=== PATIENT | male | born 1965 | race Caucasian/White ===

== ENCOUNTER → 2018-08-05 13:00 | Outpatient (CLI) | payer OTHER, MEDICAID, SELFPAY ==
--- NOTE | 2018-08-05 | OV.WND_ITS ---
Progress Note Details Patient Name: Juancarlos Nicole Patient Number: [id number] PatientPatientDate: 08/05/2018 Clinician: Nieves Guthrie Clinician Cosigner: Yuliana Estrada Physician / Film Loader: Juancarlos Wilcox SUBJECTIVE Chief Complaint This information was obtained from the patient Non-healing wound to Right lower leg Allergies NKDA HPI This information was obtained from the patient 08/05/18. Seen by Dr. Wilcox. The patient's new to our clinic and presents with a chronic, right medial lower leg non-pressure ulcer that he states has been present for many months, is painful, and has been draining. He reports intermittent significant swelling in the leg and has been wearing compression stockings although feel they're not as effective as they used to be. Family History This information was obtained from the patient Diabetes - Sibling, Heart Disease - Father, Lung Disease - Father Social History This information was obtained from the patient Alcohol Use - Occasional, Caffeine Use - 2 cups coffee, Lives in - Private home , Marital Status - Single, Occupation - Job Development Specialist, Tobacco Use (deprecated) - cigarrettes a day Past Medical History This information was obtained from the patient Patient has a medical history of: Anxiety Depression Varicose Veins Hyperlipidemia Surgical History This information was obtained from the patient Patient has a surgical history of: Umbilical hernia repair Complaints and Symptoms This information was obtained from the patient Patient complains of: General Notes: I have reviewed and concur with the Review of Systems and Past Family Social History documents completed by the clinician, I have reviewed and concur with the Wound Assessment document completed by the clinician Integumentary (Hair/Skin/Nails): Hemosiderin Staining, Open Sore Prior Wound History: Drainage, Erythema, Pain Patient denies complaints or symptoms related to: Cardiovascular (Central): Irregular heart beat Constitutional Symptoms (General Health): Chills, Fever Ear/Nose/Mouth/Throat: Hearing Loss / Aid Hematologic/Lymphatic: Bleeding / Clotting Disorders, Bleeding Tendency Neurological: Loss of Protective Sensation Respiratory: Shortness of Breath General Notes: Up to date per patient Medications tumeric oral tablet oral ibuprofen 200 mg tablet oral tablet oral OBJECTIVE Constitutional BP elevated; Afebrile; Alert and in no distress. Well developed. Alert. Clean appearing.. Height/Length: 71 in (180.34 cm), Weight: 149 lbs (67.73 kgs), BMI: 20.8, Temperature: 98.3 ?F (36.83 ?C), Pulse: 69 bpm, Respiratory Rate: 18 breaths/min, Blood Pressure: 134/89 mmHg, Pulse Oximetry: 99 %. Respiratory: No respiratory distress. Even respirations and without use of accessory muscles.. Cardiovascular: Pedal pulses 2+ on affected limb. 1+ right lower extremity edema. Gastrointestinal (GI): Non-obese. Nondistended.. Integumentary (Hair, Skin) Hemosiderin staining noted over right lower leg. Refer to appropriate clinician wound documentation for this visit; right lower leg ulcer extends to subcut with base partially covered with red, friable granulation, remainder fibrin and slough; tender upon debridement. Wound #1 Right, Medial Leg is a chronic Full Thickness Venous Ulcer and has received a status of Not Healed. Initial wound encounter measurements are 0.9cm length x 0.6cm width x 0.2cm depth, with an area of 0.54 sq cm and a volume of 0.108 cubic cm. No tunneling has been noted. No sinus tract has been noted. No undermining has been noted. There is a moderate amount of serosanguineous drainage noted which has no odor. The patient reports a wound pain of level 0/10. The wound margin is attached. Wound bed has No epithelialization, No eschar, Yes slough, Yes bright red, pink, firm granulation. The periwound skin texture is normal. The periwound skin moisture is normal. The periwound skin color is normal. The temperature of the periwound skin is WNL. Periwound skin does not exhibit signs or symptoms of infection. Local Pulse is Palpable. Neurological: Cranial nerves grossly intact with symmetric function normal by informal observation.. ASSESSMENT Active Problems ICD-10 (Encounter Diagnosis) L97.812 - Non-pressure chronic ulcer of other part of right lower leg with fat layer exposed (Encounter Diagnosis) I87.311 - Chronic venous hypertension (idiopathic) with ulcer of right lower extremity (Encounter Diagnosis) L08.9 - Local infection of the skin and subcutaneous tissue, unspecified PROCEDURES Wound #1 Wound #1 (Venous Ulcer) is located on the right, medial leg. A skin/ subcutaneous tissue level surgical debridement with a total area debrided of 0.54 sq cm was performed by Juancarlos Wilcox MD. Subcutaneous was removed along with devitalized tissue: slough. The following instrument(s) were used: curette. Pain control was achieved using 4% Lido. A time out was conducted prior to the start of the procedure. A minimal amount of bleeding was controlled with n/a. The procedure was tolerated well with a pain level of 0 throughout and a pain level of 0 following the procedure. Post Debridement Measurements: 0.9cm length x 0.6cm width x 0.3cm depth; with an area of 0.54 sq cm and a volume of 0.162 cubic cm; Additional Information Muscle fascia or bone removed and sent to pathology?: No PLAN Wound Orders: Wound #1 Right, Medial Leg Anesthetic Topical Xylocaine to wound bed. Cleanser Cleanse Wound: - Normal Saline in Clinic. May use distilled water at home. May Shower. - Please avoid getting tap water in wound or on dressing. Cover while in the shower. May used cast protector purchased from pharmacy. Topical Treatments Antibiotic/Antimicrobial Ointment/Cream. - Triple antibiotic ointment Dressings Primary dressing: - Bordered foam or band aid Change Dressing: - Every other day Additional Orders: Follow-Up Appointments Return Appointment: - - One week Other information: If you develop fever, chills, increased pain, drainage, redness or swelling please call our office. If after hours, respond to the ER. Should you experience any significant changes in your wound(s) or have any questions regarding your home care instructions please contact the wound center @ [phone]. If after hours, contact your primary care physician or go to the hospital emergency room. Scribing Attestation I attest, as the nurse, that I scribed these orders for the physician. Laboratory: Culture Wound General Notes: We will call with any positive wound cultures requiring oral antibiotics. I've reviewed the clinician's documentation and agree with the evaluation and plan as written. In addition, the patient's ulcer demonstrates evidence of non-viable devitalized tissue which will continue to benefit from sharp debridement to help promote granulation and expedite healing. Also, we've provided him with a new compression stocking, will plan on placing a compression wrap possibly next week, and started treating a superficial wound infection with OTC topical antibiotic. Electronic Signature(s) Signed By: Date: Juancarlos Wilcox MD 08/06/2018 09:13:39 Entered By: Juancarlos Wilcox on 08/06/2018 06:54:28
== END ==
PROVIDERS: PCP Family Medicine; Referring Provider Surgery Vascular Surgery; Visit Provider Internal Medicine
DX: I87.311 Chronic venous hypertension (idiopathic) with ulcer of right lower extremity (principal); L97.812 Non-pressure chronic ulcer of other part of right lower leg with fat layer exposed; L08.9 Local infection of the skin and subcutaneous tissue, unspecified
CPT/HCPCS: 11042; 87070; 87077; 87147; 87186; 87205; 99213

== ENCOUNTER → 2018-08-11 14:51 | Outpatient (CLI) | payer OTHER, SELFPAY ==
--- NOTE | 2018-08-11 | OV.WND_ITS ---
Progress Note Details Patient Name: Juancarlos Nicole Patient Number: [id number] PatientPatientDate: 08/11/2018 Clinician: Prerna Vidal Clinician Cosigner: Penelope Saenz Physician / Corner Former: Brenden Juancarlos SUBJECTIVE Chief Complaint This information was obtained from the patient Non-healing wound to Right lower leg. Allergies NKDA HPI This information was obtained from the patient 08/11/18. Seen by Dr. Wilcox. The patient reports improvement in terms of pain and drainage associated with the right medial lower leg venous ulcer since his last visit. His wound culture grew a resistant coag negative Staph species and he's been applying topical mupiricin to the ulcer base. 08/05/18. Seen by Dr. Wilcox. The patient's new to our clinic and presents with a chronic, right medial lower leg non-pressure ulcer that he states has been present for many months, is painful, and has been draining. He reports intermittent significant swelling in the leg and has been wearing compression stockings although feel they're not as effective as they used to be. Past Medical History This information was obtained from the patient Patient has a medical history of: Anxiety Depression Varicose Veins Hyperlipidemia Complaints and Symptoms This information was obtained from the patient Patient complains of: General Notes: I have reviewed and concur with the Review of Systems and Past Family Social History documents completed by the clinician, I have reviewed and concur with the Wound Assessment document completed by the clinician Integumentary (Hair/Skin/Nails): Hemosiderin Staining, Open Sore Prior Wound History: Drainage, Erythema, Pain Patient denies complaints or symptoms related to: Cardiovascular (Central): Irregular heart beat Constitutional Symptoms (General Health): Chills, Fever Ear/Nose/Mouth/Throat: Hearing Loss / Aid Hematologic/Lymphatic: Bleeding / Clotting Disorders, Bleeding Tendency Neurological: Loss of Protective Sensation Respiratory: Shortness of Breath OBJECTIVE Constitutional Vital signs reviewed and noted. Well developed. Alert. Clean appearing.. Height/ Length: 71 in (180.34 cm), Weight: 142.6 lbs (64.82 kgs), BMI: 19.9, Temperature: 98.4 ?F ( 36.89 ?C), Pulse: 84 bpm, Respiratory Rate: 18 breaths/min, Blood Pressure: 121/81 mmHg, Pulse Oximetry: 97 %. Respiratory: No respiratory distress. Even respirations and without use of accessory muscles.. Cardiovascular: Pedal pulses 2+ on affected limb. 1+ right lower extremity edema. Integumentary (Hair, Skin) Mild periwound erythema without warmth. Refer to appropriate clinician wound documentation for this visit; right lower leg ulcer extends to subcut with base partially covered with pink granulation, remainder fibrin and slough. Wound #1 Right, Medial Leg is a chronic Full Thickness Venous Ulcer and has received a status of Not Healed. Subsequent wound encounter measurements are 0.8cm length x 0.6cm width x 0.1cm depth, with an area of 0.48 sq cm and a volume of 0.048 cubic cm. No tunneling has been noted. No sinus tract has been noted. No undermining has been noted. There is a scant amount of serosanguineous drainage noted which has no odor. The patient reports a wound pain of level 0/10. The wound margin is attached. Wound bed has No epithelialization, Yes eschar, Yes slough, No granulation. The periwound skin texture is normal. The periwound skin moisture is normal. The periwound skin color is normal. The temperature of the periwound skin is WNL. Periwound skin does not exhibit signs or symptoms of infection. Local Pulse is Palpable. Neurological: Cranial nerves grossly intact with symmetric function normal by informal observation.. ASSESSMENT Active Problems ICD-10 (Encounter Diagnosis) L97.812 - Non-pressure chronic ulcer of other part of right lower leg with fat layer exposed (Encounter Diagnosis) I87.311 - Chronic venous hypertension (idiopathic) with ulcer of right lower extremity (Encounter Diagnosis) B95.7 - Other staphylococcus as the cause of diseases classified elsewhere PROCEDURES Wound #1 Wound #1 (Venous Ulcer) is located on the right, medial leg. A skin/ subcutaneous tissue level surgical debridement with a total area debrided of 0.48 sq cm was performed by Juancarlos Wilcox MD. Subcutaneous was removed along with devitalized tissue: exudate and slough. The following instrument(s) were used: curette. Pain control was achieved using 4% Lido. A time out was conducted prior to the start of the procedure. A minimal amount of bleeding was controlled with pressure. The procedure was tolerated well with a pain level of 3 throughout and a pain level of 1 following the procedure. Post Debridement Measurements: 0.8cm length x 0.6cm width x 0.2cm depth; with an area of 0.48 sq cm and a volume of 0.096 cubic cm; General Notes: No post photo taken. Additional Information Muscle fascia or bone removed and sent to pathology?: No PLAN Wound Orders: Wound #1 Right, Medial Leg Anesthetic Topical Xylocaine to wound bed. - In clinic only. Cleanser Cleanse Wound: - Normal Saline in Clinic. May use distilled water at home. May Shower. - Please avoid getting tap water in wound or on dressing. Cover while in the shower. May use cast protector purchased from pharmacy. Topical Treatments Antibiotic/Antimicrobial Ointment/Cream. - Gentamicin ointment. Dressings Cover and secure with: - Telfa pad secured with hypafix tape. Change Dressing: - Daily. Additional Orders: Compression/Edema Control Elevation of leg(s) above the level of the heart when sitting. Avoid prolonged standing in one place. Single Layer Compression Hose - Wear your personal compression stockings every day. Follow-Up Appointments Return Appointment: - - One week. Other information: If you develop fever, chills, increased pain, drainage, redness or swelling please call our office. If after hours, respond to the ER. Should you experience any significant changes in your wound(s) or have any questions regarding your home care instructions please contact the wound center @ [phone]. If after hours, contact your primary care physician or go to the hospital emergency room. Scribing Attestation I attest, as the nurse, that I scribed these orders for the physician. I've reviewed the clinician's documentation and agree with the evaluation and plan as written. In addition, the patient's ulcer demonstrates evidence of non-viable devitalized tissue which will continue to benefit from sharp debridement to help promote granulation and expedite healing. Also, the patient will apply topical gentamicin to the ulcer base daily to treat the Staph positive culture. Electronic Signature(s) Signed By: Date: Juancarlos Wilcox MD 08/12/2018 07:59:58 Entered By: Juancarlos Wilcox on 08/12/2018 07:30:34
== END ==
PROVIDERS: PCP Family Medicine; Visit Provider Internal Medicine
DX: I87.311 Chronic venous hypertension (idiopathic) with ulcer of right lower extremity (principal); L97.812 Non-pressure chronic ulcer of other part of right lower leg with fat layer exposed; B95.7 Other staphylococcus as the cause of diseases classified elsewhere
CPT/HCPCS: 11042

== ENCOUNTER → 2018-08-18 14:04 | Outpatient (CLI) | payer OTHER, SELFPAY ==
--- NOTE | 2018-08-18 | OV.WND_ITS ---
Progress Note Details Patient Name: Juancarlos Nicole Patient Number: [id number] PatientPatientDate: 08/18/2018 Clinician: Prerna Vidal Clinician Cosigner: Nieves Guthrie Physician / Biomedical Engineering Professor: Brenden Juancarlos SUBJECTIVE Chief Complaint This information was obtained from the patient Non-healing wound to Right lower leg. Allergies NKDA HPI This information was obtained from the patient 08/18/18. Seen by Dr. Wilcox. The patient does not report pain associated with the right medial lower leg venous ulcer since his last visit and he's applying topical gentamicin to treat the recent coag negative Staph culture taken from the ulcer. 08/11/18. Seen by Dr. Wilcox. The patient reports improvement in terms of pain and drainage associated with the right medial lower leg venous ulcer since his last visit. His wound culture grew a resistant coag negative Staph species and he's been applying topical mupiricin to the ulcer base. 08/05/18. Seen by Dr. Wilcox. The patient's new to our clinic and presents with a chronic, right medial lower leg non-pressure ulcer that he states has been present for many months, is painful, and has been draining. He reports intermittent significant swelling in the leg and has been wearing compression stockings although feel they're not as effective as they used to be. Past Medical History This information was obtained from the patient Patient has a medical history of: Anxiety Depression Varicose Veins Hyperlipidemia Complaints and Symptoms This information was obtained from the patient Patient complains of: General Notes: I have reviewed and concur with the Review of Systems and Past Family Social History documents completed by the clinician, I have reviewed and concur with the Wound Assessment document completed by the clinician Integumentary (Hair/Skin/Nails): Hemosiderin Staining, Open Sore Prior Wound History: Drainage, Erythema, Pain Patient denies complaints or symptoms related to: Cardiovascular (Central): Irregular heart beat Constitutional Symptoms (General Health): Chills, Fever Ear/Nose/Mouth/Throat: Hearing Loss / Aid Hematologic/Lymphatic: Bleeding / Clotting Disorders, Bleeding Tendency Neurological: Loss of Protective Sensation Respiratory: Shortness of Breath OBJECTIVE Constitutional BP normal; Low grade fever; Alert and in no distress. Well developed. Alert. Clean appearing.. Height/Length: 71 in (180.34 cm), Weight: 142.6 lbs (64.82 kgs), BMI: 19.9, Temperature: 99.9 ?F (37.72 ?C), Pulse: 81 bpm, Respiratory Rate: 18 breaths/min, Blood Pressure: 127/81 mmHg, Pulse Oximetry: 96 %. Respiratory: No respiratory distress. Even respirations and without use of accessory muscles.. Cardiovascular: Affected extremity exhibits no peripheral edema or cyanosis, is warm, and is well perfused. Capillary refill is less than 2 seconds. Integumentary (Hair, Skin) No periwound erythema, warmth, or significant drainage. No periwound rashes appreciated or noted otherwise.. Refer to appropriate clinician wound documentation for this visit; right lower leg ulcer extends to subcut with base partially covered with pink granulation, remainder fibrin and slough, minor bleeding from a varicose vein at the base treated with pressure and cauterization. Wound #1 Right, Medial Leg is a chronic Full Thickness Venous Ulcer and has received a status of Not Healed. Subsequent wound encounter measurements are 1cm length x 0.8cm width x 0.1cm depth, with an area of 0.8 sq cm and a volume of 0.08 cubic cm. No tunneling has been noted. No sinus tract has been noted. No undermining has been noted. There is a small amount of serosanguineous drainage noted which has no odor. The patient reports a wound pain of level 0/10. The wound margin is attached. Wound bed has No epithelialization, Yes eschar, Yes slough, No granulation. The periwound skin texture is normal. The periwound skin moisture is normal. The periwound skin color is normal. The temperature of the periwound skin is WNL. Periwound skin does not exhibit signs or symptoms of infection. Local Pulse is Palpable. Neurological: Cranial nerves grossly intact with symmetric function normal by informal observation.. ASSESSMENT Active Problems ICD-10 (Encounter Diagnosis) L97.812 - Non-pressure chronic ulcer of other part of right lower leg with fat layer exposed (Encounter Diagnosis) I87.311 - Chronic venous hypertension (idiopathic) with ulcer of right lower extremity (Encounter Diagnosis) B95.7 - Other staphylococcus as the cause of diseases classified elsewhere PROCEDURES Wound #1 Wound #1 (Venous Ulcer) is located on the right, medial leg. A skin/ subcutaneous tissue level surgical debridement with a total area debrided of 0.8 sq cm was performed by Juancarlos Wilcox MD. Subcutaneous was removed along with devitalized tissue: exudate and slough. The following instrument(s) were used: curette. Pain control was achieved using 4% Lido. A time out was conducted prior to the start of the procedure. A moderate amount of bleeding was controlled with silver nitrate. The procedure was tolerated well with a pain level of 0 throughout and a pain level of 0 following the procedure. Post Debridement Measurements: 1cm length x 0.8cm width x 0.2cm depth; with an area of 0.8 sq cm and a volume of 0.16 cubic cm; Additional Information Muscle fascia or bone removed and sent to pathology?: No PLAN Wound Orders: Wound #1 Right, Medial Leg Anesthetic Topical Xylocaine to wound bed. - In clinic only. Cleanser Cleanse Wound: - Normal Saline in Clinic. May use distilled water at home. May Shower. - Please avoid getting tap water in wound or on dressing. Cover while in the shower. May use cast protector purchased from pharmacy. Topical Treatments Antibiotic/Antimicrobial Ointment/Cream. - Gentamicin ointment. Dressings Cover and secure with: - Bordered foam applied in clinic. Telfa pad secured with hypafix tape. Change Dressing: - Daily. Additional Orders: Compression/Edema Control Elevation of leg(s) above the level of the heart when sitting. Avoid prolonged standing in one place. Single Layer Compression Hose - Wear your personal compression stockings every day. Follow-Up Appointments Return Appointment: - - One week. Other information: If you develop fever, chills, increased pain, drainage, redness or swelling please call our office. If after hours, respond to the ER. Should you experience any significant changes in your wound(s) or have any questions regarding your home care instructions please contact the wound center @ [phone]. If after hours, contact your primary care physician or go to the hospital emergency room. Scribing Attestation I attest, as the nurse, that I scribed these orders for the physician. General Notes: Submitting for MISHA NPWT device to possibly place at next visit. I've reviewed the clinician's documentation and agree with the evaluation and plan as written. In addition, the patient's ulcer demonstrates evidence of non-viable devitalized tissue which will continue to benefit from sharp debridement to help promote granulation and expedite healing. Electronic Signature(s) Signed By: Date: Juancarlos Wilcox MD 08/19/2018 06:59:08 Entered By: Juancarlos Wilcox on 08/19/2018 06:29:57
== END ==
PROVIDERS: PCP Family Medicine; Visit Provider Internal Medicine
DX: I87.2 Venous insufficiency (chronic) (peripheral) (principal); L97.812 Non-pressure chronic ulcer of other part of right lower leg with fat layer exposed; B95.7 Other staphylococcus as the cause of diseases classified elsewhere
CPT/HCPCS: 11042

== ENCOUNTER → 2018-08-25 14:22 | Outpatient (CLI) | payer OTHER, SELFPAY ==
--- NOTE | 2018-08-25 | OV.WND_ITS ---
Progress Note Details Patient Name: Juancarlos Nicole Patient Number: [id number] PatientPatientDate: 08/25/2018 Clinician: Yuliana Estrada Clinician Cosigner: Penelope Saenz Physician / Callisthenics Instructor: Brenden Juancarlos SUBJECTIVE Chief Complaint This information was obtained from the patient Non-healing wound to Right lower leg. Allergies NKDA HPI This information was obtained from the patient 08/25/18. Seen by Dr. Wilcox. The patient does not report pain associated with the right medial lower leg venous ulcer since his last visit and he's applying topical gentamicin to treat the recent coag negative Staph culture taken from the ulcer. 08/18/18. Seen by Dr. Wilcox. The patient does not report pain associated with the right medial lower leg venous ulcer since his last visit and he's applying topical gentamicin to treat the recent coag negative Staph culture taken from the ulcer. 08/11/18. Seen by Dr. Wilcox. The patient reports improvement in terms of pain and drainage associated with the right medial lower leg venous ulcer since his last visit. His wound culture grew a resistant coag negative Staph species and he's been applying topical mupiricin to the ulcer base. 08/05/18. Seen by Dr. Wilcox. The patient's new to our clinic and presents with a chronic, right medial lower leg non-pressure ulcer that he states has been present for many months, is painful, and has been draining. He reports intermittent significant swelling in the leg and has been wearing compression stockings although feel they're not as effective as they used to be. Past Medical History This information was obtained from the patient Patient has a medical history of: Anxiety Depression Varicose Veins Hyperlipidemia Complaints and Symptoms This information was obtained from the patient Patient complains of: General Notes: I have reviewed and concur with the Review of Systems and Past Family Social History documents completed by the clinician, I have reviewed and concur with the Wound Assessment document completed by the clinician Integumentary (Hair/Skin/Nails): Hemosiderin Staining, Open Sore Prior Wound History: Drainage, Erythema, Pain Patient denies complaints or symptoms related to: Cardiovascular (Central): Irregular heart beat Constitutional Symptoms (General Health): Chills, Fever Ear/Nose/Mouth/Throat: Hearing Loss / Aid Hematologic/Lymphatic: Bleeding / Clotting Disorders, Bleeding Tendency Neurological: Loss of Protective Sensation Respiratory: Shortness of Breath OBJECTIVE Constitutional Vital signs reviewed and noted. Well developed. Alert. Clean appearing.. Height/ Length: 71 in (180.34 cm), Weight: 144.7 lbs (65.77 kgs), BMI: 20.2, Temperature: 98.2 ?F ( 36.78 ?C), Pulse: 80 bpm, Respiratory Rate: 18 breaths/min, Blood Pressure: 127/88 mmHg, Pulse Oximetry: 66 %. Ears, Nose, Mouth, and Throat: No clinically significant hearing loss on informal examination. Respiratory: No respiratory distress. Even respirations and without use of accessory muscles.. Cardiovascular: 1+ right lower extremity edema. Integumentary (Hair, Skin) Hemosiderin staining noted over right lower leg. Refer to appropriate clinician wound documentation for this visit; right lower leg ulcer extends to subcut with base partially covered with pink granulation, remainder fibrin and slough. Wound #1 Right, Medial Leg is a chronic Full Thickness Venous Ulcer and has received a status of Not Healed. Subsequent wound encounter measurements are 1.1cm length x 0.5cm width x 0.2cm depth, with an area of 0.55 sq cm and a volume of 0.11 cubic cm. No tunneling has been noted. No sinus tract has been noted. No undermining has been noted. There is a small amount of serosanguineous drainage noted which has no odor. The patient reports a wound pain of level 3/10. The wound margin is attached. Wound bed has No epithelialization, No eschar, Yes slough, No granulation. The periwound skin texture is normal. The periwound skin moisture is normal. The periwound skin color is normal. The temperature of the periwound skin is WNL. Periwound skin does not exhibit signs or symptoms of infection. Local Pulse is Palpable. Neurological: Cranial nerves grossly intact with symmetric function normal by informal observation.. ASSESSMENT Active Problems ICD-10 (Encounter Diagnosis) L97.812 - Non-pressure chronic ulcer of other part of right lower leg with fat layer exposed (Encounter Diagnosis) I87.311 - Chronic venous hypertension (idiopathic) with ulcer of right lower extremity (Encounter Diagnosis) B95.7 - Other staphylococcus as the cause of diseases classified elsewhere PROCEDURES Wound #1 Wound #1 (Venous Ulcer) is located on the right, medial leg. A skin/ subcutaneous tissue level surgical debridement with a total area debrided of 0.55 sq cm was performed by Juancarlos Wilcox MD. Subcutaneous was removed along with devitalized tissue: slough. The following instrument(s) were used: curette. Pain control was achieved using 4% Lido. A time out was conducted prior to the start of the procedure. A minimal amount of bleeding was controlled with n/a. The procedure was tolerated well with a pain level of 0 throughout and a pain level of 0 following the procedure. Post Debridement Measurements: 1.1cm length x 0.5cm width x 0.3cm depth; with an area of 0.55 sq cm and a volume of 0.165 cubic cm; Additional Information Muscle fascia or bone removed and sent to pathology?: No PLAN Wound Orders: Wound #1 Right, Medial Leg Anesthetic Topical Xylocaine to wound bed. - In clinic only. Cleanser Cleanse Wound: - Normal Saline in Clinic. May use distilled water at home. May Shower. - Please avoid getting tap water in wound or on dressing. Cover while in the shower. May use cast protector purchased from pharmacy. Topical Treatments Antibiotic/Antimicrobial Ointment/Cream. - Gentamicin ointment. Dressings Cover and secure with: - Bordered foam applied in clinic. Telfa pad secured with hypafix tape. Change Dressing: - Daily. Additional Orders: Compression/Edema Control Elevation of leg(s) above the level of the heart when sitting. Avoid prolonged standing in one place. Single Layer Compression Hose - Wear your personal compression stockings every day. Follow-Up Appointments Return Appointment: - - One week. Other information: If you develop fever, chills, increased pain, drainage, redness or swelling please call our office. If after hours, respond to the ER. Should you experience any significant changes in your wound(s) or have any questions regarding your home care instructions please contact the wound center @ [phone]. If after hours, contact your primary care physician or go to the hospital emergency room. Scribing Attestation I attest, as the nurse, that I scribed these orders for the physician. I've reviewed the clinician's documentation and agree with the evaluation and plan as written. In addition, the patient's ulcer demonstrates evidence of non-viable devitalized tissue which will continue to benefit from sharp debridement to help promote granulation and expedite healing. Electronic Signature(s) Signed By: Date: Juancarlos Wilcox MD 08/26/2018 06:45:54 Entered By: Juancarlos Wilcox on 08/25/2018 20:52:15
== END ==
PROVIDERS: PCP Family Medicine; Visit Provider Internal Medicine
DX: I87.311 Chronic venous hypertension (idiopathic) with ulcer of right lower extremity (principal); L97.812 Non-pressure chronic ulcer of other part of right lower leg with fat layer exposed; B95.7 Other staphylococcus as the cause of diseases classified elsewhere
CPT/HCPCS: 11042

== ENCOUNTER → 2018-09-01 09:39 | Outpatient (CLI) | payer OTHER, SELFPAY ==
--- NOTE | 2018-09-01 | OV.WND_ITS ---
Progress Note Details Patient Name: Juancarlos Nicole Patient Number: [id number] PatientPatientDate: 09/01/2018 Clinician: Prerna Vidal Clinician Cosigner: Penelope Saenz Physician / Lithograph Press Operator: Brenden Juancarlos SUBJECTIVE Chief Complaint This information was obtained from the patient Non-healing wound to Right lower leg. Allergies NKDA HPI This information was obtained from the patient 09/01/18.Seen by Dr. Wilcox. The patient does not report increased drainage or pain associated with the right medial lower leg venous ulcer since his last visit and he's scheduled for an endovenous procedure to treat the chronic venous hypertension in the leg on Sep.14. 08/25/18. Seen by Dr. Wilcox. The patient does not report pain associated with the right medial lower leg venous ulcer since his last visit and he's applying topical gentamicin to treat the recent coag negative Staph culture taken from the ulcer. 08/18/18. Seen by Dr. Wilcox. The patient does not report pain associated with the right medial lower leg venous ulcer since his last visit and he's applying topical gentamicin to treat the recent coag negative Staph culture taken from the ulcer. 08/11/18. Seen by Dr. Wilcox. The patient reports improvement in terms of pain and drainage associated with the right medial lower leg venous ulcer since his last visit. His wound culture grew a resistant coag negative Staph species and he's been applying topical mupiricin to the ulcer base. 08/05/18. Seen by Dr. Wilcox. The patient's new to our clinic and presents with a chronic, right medial lower leg non-pressure ulcer that he states has been present for many months, is painful, and has been draining. He reports intermittent significant swelling in the leg and has been wearing compression stockings although feel they're not as effective as they used to be. Past Medical History This information was obtained from the patient Patient has a medical history of: Anxiety Depression Varicose Veins Hyperlipidemia Complaints and Symptoms This information was obtained from the patient Patient complains of: General Notes: I have reviewed and concur with the Review of Systems and Past Family Social History documents completed by the clinician, I have reviewed and concur with the Wound Assessment document completed by the clinician Integumentary (Hair/Skin/Nails): Hemosiderin Staining, Open Sore Prior Wound History: Drainage, Erythema, Pain Patient denies complaints or symptoms related to: Cardiovascular (Central): Irregular heart beat Constitutional Symptoms (General Health): Chills, Fever Ear/Nose/Mouth/Throat: Hearing Loss / Aid Hematologic/Lymphatic: Bleeding / Clotting Disorders, Bleeding Tendency Neurological: Loss of Protective Sensation Respiratory: Shortness of Breath OBJECTIVE Constitutional Vital signs reviewed and noted. Well developed. Alert. Clean appearing.. Height/ Length: 71 in (180.34 cm), Weight: 141.6 lbs (64.36 kgs), BMI: 19.7, Temperature: 98.3 ?F ( 36.83 ?C), Pulse: 75 bpm, Respiratory Rate: 18 breaths/min, Blood Pressure: 117/75 mmHg, Pulse Oximetry: 98 %. Respiratory: No respiratory distress. Even respirations and without use of accessory muscles.. Cardiovascular: 1+ right lower extremity edema. Integumentary (Hair, Skin) Hemosiderin staining noted over right lower leg. Refer to appropriate clinician wound documentation for this visit; right lower leg ulcer extends to subcut with base partially covered with pink granulation, remainder fibrin and slough. Wound #1 Right, Medial Leg is a chronic Full Thickness Venous Ulcer and has received a status of Not Healed. Subsequent wound encounter measurements are 1.1cm length x 0.7cm width x 0.2cm depth, with an area of 0.77 sq cm and a volume of 0.154 cubic cm. No tunneling has been noted. No sinus tract has been noted. No undermining has been noted. There is a small amount of serosanguineous drainage noted which has no odor. The patient reports a wound pain of level 3/10. The wound margin is attached. Wound bed has No epithelialization, No eschar, Yes slough, No granulation. The periwound skin moisture is normal. The periwound skin color is normal. The periwound skin exhibited: Edema. The periwound skin did not exhibit: Brawny Induration, Excoriation, Induration, Callus, Crepitus, Fluctuance, Friable, Rash. The temperature of the periwound skin is WNL. Periwound skin does not exhibit signs or symptoms of infection. Local Pulse is Palpable. Neurological: Cranial nerves grossly intact with symmetric function normal by informal observation.. ASSESSMENT Active Problems ICD-10 (Encounter Diagnosis) L97.812 - Non-pressure chronic ulcer of other part of right lower leg with fat layer exposed (Encounter Diagnosis) I87.311 - Chronic venous hypertension (idiopathic) with ulcer of right lower extremity PROCEDURES Wound #1 Wound #1 (Venous Ulcer) is located on the right, medial leg. A skin/ subcutaneous tissue level surgical debridement with a total area debrided of 0.77 sq cm was performed by Juancarlos Wilcox MD. Subcutaneous was removed along with devitalized tissue: exudate and slough. The following instrument(s) were used: curette. Pain control was achieved using 4% Lido. A time out was conducted prior to the start of the procedure. A minimal amount of bleeding was controlled with n/a. The procedure was tolerated well with a pain level of 0 throughout and a pain level of 0 following the procedure. Post Debridement Measurements: 1.1cm length x 0.7cm width x 0.3cm depth; with an area of 0.77 sq cm and a volume of 0.231 cubic cm; Additional Information Muscle fascia or bone removed and sent to pathology?: No PLAN Wound Orders: Wound #1 Right, Medial Leg Anesthetic Topical Xylocaine to wound bed. - In clinic only. Cleanser Cleanse Wound: - Normal Saline in Clinic. May use distilled water at home. May Shower. - Please avoid getting tap water in wound or on dressing. Cover while in the shower. May use cast protector purchased from pharmacy. Dressings Cover and secure with: - Silicone bordered foam. Change Dressing: - Every 2-3 days to control drainage. Follow-Up Appointments Return Appointment: - - One week. Other information: If you develop fever, chills, increased pain, drainage, redness or swelling please call our office. If after hours, respond to the ER. Should you experience any significant changes in your wound(s) or have any questions regarding your home care instructions please contact the wound center @ [phone]. If after hours, contact your primary care physician or go to the hospital emergency room. Scribing Attestation I attest, as the nurse, that I scribed these orders for the physician. Additional Orders: Compression/Edema Control Elevation of leg(s) above the level of the heart when sitting. Avoid prolonged standing in one place. Single Layer Compression Hose - Tetragrip E applied in clinic. May wear your personal compression stockings if you feel they have more compression. General Notes: Will request pre-op notes from [facility]. Considering compression wrap. I've reviewed the clinician's documentation and agree with the evaluation and plan as written. In addition, the patient's ulcer demonstrates evidence of non-viable devitalized tissue which will continue to benefit from sharp debridement to help promote granulation and expedite healing. Electronic Signature(s) Signed By: Date: Juancarlos Wilcox MD 09/04/2018 07:29:40 Entered By: Juancarlos Wilcox on 09/04/2018 07:21:56
== END ==
PROVIDERS: PCP Family Medicine; Visit Provider Internal Medicine
DX: I87.311 Chronic venous hypertension (idiopathic) with ulcer of right lower extremity (principal); L97.812 Non-pressure chronic ulcer of other part of right lower leg with fat layer exposed
CPT/HCPCS: 11042

== ENCOUNTER → 2018-09-08 09:52 | Outpatient (CLI) | payer OTHER, SELFPAY | PROVIDERS: PCP Family Medicine; Visit Provider Internal Medicine | DX: I87.2 Venous insufficiency (chronic) (peripheral) (principal); L97.812 Non-pressure chronic ulcer of other part of right lower leg with fat layer exposed; B95.7 Other staphylococcus as the cause of diseases classified elsewhere | CPT/HCPCS: 11042 ==

== ENCOUNTER → 2018-09-17 09:54 | Outpatient (CLI) | payer OTHER, SELFPAY ==
--- NOTE | 2018-09-17 | DI.US.S_ITS ---
PROCEDURE: US PERIPH VENOUS LOW EXTREM RT INDICATIONS: HTN WITH ULCER, POST GSV ABLATION TECHNIQUE: Real-time imaging, as well as color and pulse Doppler interrogation, were performed of the lower extremity deep veins from the inguinal ligament to the popliteal fossa. COMPARISON: None. FINDINGS: The deep veins are normally compressible, and free of intraluminal thrombus. Color and pulse Doppler demonstrate normal phasic intraluminal flow. There is normal augmentation response to distal compression maneuver. There is occlusion of the proximal right greater saphenous vein, which is consistent with prior recent ablation. IMPRESSION: Negative for deep venous thrombosis. Recent greater saphenous vein ablation. Dictated by: Luis Cobian M.D. on 09/17/2018 at 10:07 Approved by: Luis Cobian M.D. on 09/17/2018 at 10:09
== END ==
PROVIDERS: PCP Family Medicine; Visit Provider Surgery Vascular Surgery
DX: I87.311 Chronic venous hypertension (idiopathic) with ulcer of right lower extremity (principal); Z98.890 Other specified postprocedural states
CPT/HCPCS: 93971

== ENCOUNTER → 2018-09-21 10:22 | Outpatient (CLI) | payer OTHER, SELFPAY | PROVIDERS: PCP Family Medicine; Visit Provider Family Medicine | DX: I87.311 Chronic venous hypertension (idiopathic) with ulcer of right lower extremity (principal); L97.812 Non-pressure chronic ulcer of other part of right lower leg with fat layer exposed; M79.604 Pain in right leg | CPT/HCPCS: 97597 ==

== ENCOUNTER → 2018-09-28 09:41 | Outpatient (CLI) | payer OTHER, SELFPAY | PROVIDERS: PCP Family Medicine; Visit Provider Family Medicine | DX: I87.303 Chronic venous hypertension (idiopathic) without complications of bilateral lower extremity (principal) | CPT/HCPCS: 99212; 99213 ==